=== PATIENT | male | born 1930 | race Caucasian/White ===

== ENCOUNTER 2017-02-24 12:07 | Emergency (ER) | payer MEDICARE, OTHER ==
[~2017-02-24 12:07] MED LIST: ALAVERT10 MG PO; ALOE VESTA56 GM TP; ANCEF-D5W2000 MG/50 IV; ASPIR 8181 MG PO; ASPIRIN325 MG PO; BACTRIM DS TAB1 EAC2 PO; BACTRIM1 TAB PO; CALCIUM 500 WI1 EAC1 PO; CULTURELLE1 EACH PO; DOCU SOFT100 M1 PO; DOXY-LEMMON100 MG PO; DULCOLAX10 MG/SUPP RC; DUONEB 2.5-0.5 M3 ML IH; FISH OIL 1,0001 CAP PO; FISH OIL 11000 MG/CA PO; FLAGYL250 MG PO; FLAGYL500 M1 PO; FLEET ENEMA118 ML RC; FLEET ENEMA133 ML PR; FLOMAX0.4 M1 PO; FLOMAX0.4 MG PO; GABAPENTIN400 M1 PO; ISOPTO TEARS15 ML OP; KEFLEX500 M1 PO; LIDODERM30 EA TP; LIPITOR40 M1 PO; LIPITOR40 MG PO; LOPRESSOR25 MG/TA7 PO; LOPRESSOR50 M1 PO; MILK OF MA400 MG/5 M PO; MILK OF MAGNESIA PO; MULTIPLE VITAM1 EAC3 PO; MULTIVITAMIN W/1 CAP PO; NAPROXEN375 MG PO; NATURAL TEARS; NEURONTIN300 M1 PO; NEURONTIN300 MG PO; OMEPRAZOLE20 M2 PO; PROTONIX40 M2 PO; RIFADIN300 MG PO; THIAMINE HCL100 MG PO; TRAZODONE HCL50 M1 PO; TYLENOL325 M2 PO; ULTRAM50 M1 PO; VANCOMYCIN25 MG/1 ML PO; VIBRAMYCIN100 MG PO; ZOCOR80 MG PO; ZOFRAN ODT4 MG PO; ZYPREXA2.5 M1 PO; ZYPREXA2.5 MG PO
[2017-02-24 13:00] LABS: BASO % 0.1 % (0-2); EOS % 0.1 % (0-7); HCT-HEMATOCRIT 42.1 % (36.0-53.5); HGB-HEMOGLOBIN 14.4 gm/dl (13.5-17.0); IMMATURE GRANULOCYTES ABSOLUTE 0.03 tho/cmm (0-0.03); IMMATURE GRANULOCYTES PERCENT 0.2 % (0-0.3); LYMPH % 9.3 % (20-45); LYMPH ABSOLUTE COUNT 1.1 tho/cmm (0.8-4.5); MCH (MEAN CORPUSCULAR HGB) 33.3 pg (28.0-32.0); MCHC MEAN CORPUSCULAR HGB CONC 34.2 % (32.0-36.0); MCV (MEAN CELL VOLUME) 97.2 fl (82.0-96.0); MEAN PLATELET VOLUME 9.4 cmc (9.4-12.4); MONO % 8.9 % (0-12); MONOCYTE ABSOLUTE COUNT 1.1 tho/cmm (0.0-1.2); NEUTROPHIL ABSOLUTE COUNT 9.9 tho/cmm (1.6-8.0); NEUTROPHIL-AUTOMATED 9.9 tho/cmm (1.6-8.0); NEUTROPHILS % 81.4 % (40-80); PLATELET COUNT 121 tho/cmm (150-450); RED BLOOD COUNT 4.33 mil/cmm (4.40-5.70); RED CELL DISTRIBUTION WIDTH 13.1 % (12.4-16.4); WHITE BLOOD COUNT 12.2 tho/cmm (4.0-10.0)
[2017-02-24 13:14] LABS: ALB/GLOB RATIO 0.8 (0.8-2.0); ALBUMIN 3.4 g/dl (3.5-5.0); ALKALINE PHOSPHATASE 61 U/L (33-138); ALT/SGPT 33 U/L (12-78); BILIRUBIN,TOTAL 0.8 mg/dl (0.0-1.5); BLOOD UREA NITROGEN 21 mg/dl (6-24); CALCIUM 8.6 mg/dl (8.5-10.5); CARBON DIOXIDE-VENOUS 27 mmol/L (22-32); CHLORIDE 104 mmol/l (96-110); CREATININE 1.23 mg/dl (0.60-1.30); GLUCOSE 141 mg/dL (70-110); LIPASE 317 U/L (73-393); SODIUM 138 mmol/L (135-145); eGFR VALUE FOR BLACK 61 mL/Min
[2017-02-24 13:16] LABS: ANION GAP 12 mmol/L (0-20); AST/SGOT 22 U/L (10-40); POTASSIUM 4.5 mmol/L (3.7-5.1)
[2017-02-24 13:24] LABS: URINE BILIRUBIN NEGATIVE (NEG); URINE BLOOD SMALL (NEG); URINE GLUCOSE (UA) NEGATIVE (NEG); URINE KETONE NEGATIVE (NEG); URINE LEUKOCYTE ESTERASE POSITIVE (NEG); URINE NITRITE POSITIVE (NEG); URINE PROTEIN SMALL (NEG)
[2017-02-24 13:31] LABS: URINE APPEARANCE HAZY; URINE COLOR YELLOW
[2017-02-24 13:33] LABS: URINE BACTERIA 3+; URINE EPITHELIAL CELLS 0-1 /[HPF] (0-10); URINE RBC 0-3 /[HPF] (0-5)
[2017-02-24] MEDS ORDERED: KEFLEX500 M4 PO (14:27)
[2017-04-06] MEDS ORDERED: ACIDOPHILUS1 EAC5 PO (12:52)
[2017-04-06] MEDS ORDERED: ARTIFICIAL TEAR1512 EACH EYE (12:55)
[2017-04-06] MEDS ORDERED: ASPIRIN81 M1 CH (12:55)
[2017-04-06] MEDS ORDERED: ULTRAM50 M1 PO ×2 (13:12→13:20)
[2017-04-06] MEDS ORDERED: THIAMINE HCL100 M2 PO (13:12)
[2017-04-06] MEDS ORDERED: TYLENOL325 M2 PO (13:17)
[2017-04-06] MEDS ORDERED: ALLERGY10 M3 PO (13:18)
[2017-04-06] MEDS ORDERED: [UNRECOGNIZED DRUG - SUPPLY] TP (13:18)
[2017-04-06] MEDS ORDERED: STOOL SOFTENER100 M3 PO (13:19)
[2017-04-06] MEDS ORDERED: MILK OF MAGNESIA PO (13:21)
[2017-04-06] MEDS ORDERED: ALOE VESTA TP (13:21)
[2017-04-06] MEDS ORDERED: NYSTATIN15 G1 TP (13:22)
[2017-04-09] MEDS ORDERED: BACTRIM DS TAB1 EAC2 PO (10:09)
[2017-04-09] MEDS ORDERED: CIPRO500 M2 PO (10:12)
== END 2017-02-24 15:19 ==
LOC: EDMED 12:07
PROVIDERS: Emergency Medicine
DX: N39.0 Urinary tract infection, site not specified (principal); R11.10 Vomiting, unspecified; F03.90 Unspecified dementia, unspecified severity, without behavioral disturbance, psychotic disturbance, mood disturbance, and anxiety; I10 Essential (primary) hypertension; K21.9 Gastro-esophageal reflux disease without esophagitis; Z79.899 Other long term (current) drug therapy
CPT/HCPCS: J0690; J2405; J7030; P9612

== ENCOUNTER 2017-05-17 10:06 | Day surgery (SDC) | payer MEDICARE, OTHER ==
[~2017-05-17] VITALS: Ht 180.3 cm; Wt 82.3 kg
[~2017-05-17 10:06] MED LIST changes: +ACIDOPHILUS1 EAC5 PO; +ALLERGY10 M3 PO; +ALOE VESTA TP; +ARTIFICIAL TEAR1512 EACH EYE; +ASPIRIN81 M1 CH; +CIPRO500 M2 PO; +KEFLEX500 M4 PO; +NYSTATIN15 G1 TP; +STOOL SOFTENER100 M3 PO; +THIAMINE HCL100 M2 PO; +[UNRECOGNIZED DRUG - SUPPLY] TP
[2017-05-17 13:56] LABS: URINE APPEARANCE HAZY; URINE BILIRUBIN NEGATIVE (NEG); URINE BLOOD NEGATIVE (NEG); URINE COLOR YELLOW; URINE GLUCOSE (UA) NEGATIVE (NEG); URINE KETONE NEGATIVE (NEG); URINE LEUKOCYTE ESTERASE POSITIVE (NEG); URINE NITRITE POSITIVE (NEG); URINE PROTEIN NEGATIVE (NEG); URINE SPECIFIC GRAVITY 1.015 (1.003-1.030)
[2017-05-17 14:02] LABS: URINE BACTERIA 2+; URINE RBC 0 /[HPF] (0-5)
== END 2017-05-17 14:00 ==
LOC: SRG 10:06 → SHSC 10:06 → SRG 10:15 → CTSCAN 10:15 → SRG 14:00
PROVIDERS: Urology
PROC: 0TJB8ZZ Inspection of Bladder, Via Natural or Artificial Opening Endoscopic (ICD-10-PCS; principal; 2017-05-17)
DX: N39.0 Urinary tract infection, site not specified (principal); N39.42 Incontinence without sensory awareness; N47.8 Other disorders of prepuce; I10 Essential (primary) hypertension; M19.90 Unspecified osteoarthritis, unspecified site; M81.0 Age-related osteoporosis without current pathological fracture; Z87.891 Personal history of nicotine dependence; Z79.82 Long term (current) use of aspirin; Z79.899 Other long term (current) drug therapy; Z98.890 Other specified postprocedural states
CPT/HCPCS: J1940; Q9967